=== PATIENT | female | born 1990 | race Caucasian/White ===

== ENCOUNTER → 2018-08-16 17:10 | Outpatient (CLI) | payer SELFPAY ==
[2018-08-16 21:20] LABS: Chlamydia Trachomatis by PCR Negative (Negative); Neisserai gonorrhoeae by PCR Negative (Negative); Probe Check PASS; Sample Adequacy Control PASS; Specimen Processing Control PASS
[2018-08-23 08:37] LABS: HPV Reflexed? NOT INDICATED
== END ==
PROVIDERS: Referring Provider Obstetrics & Gynecology; Visit Provider Obstetrics & Gynecology
DX: Z34.81 Encounter for supervision of other normal pregnancy, first trimester (principal); Z12.4 Encounter for screening for malignant neoplasm of cervix; Z11.3 Encounter for screening for infections with a predominantly sexual mode of transmission
CPT/HCPCS: 87491; 87591; 88175; G0145

== ENCOUNTER → 2018-09-11 11:42 | Outpatient (CLI) | payer SELFPAY ==
[2018-09-11 13:38] LABS: Color, Urine Yellow (Yellow); Glucose, Dipstick Normal (Normal); Ketone-Dipstick Negative (Negative); Leukocyte Esterase-Dipstick Negative /ul (Negative); Nitrite-Dipstick Negative (Negative); Occult Blood-Urine Negative /ul (Negative); Protein-Dipstick Negative (Negative); Urine Bilirubin Dipstick Negative (Negative); Urine Clarity Sl. Cloudy (Clear); Urine Urobilinogen Normal (Normal)
[2018-09-11 16:02] LABS: Absolute Lymphocyte Count 1.16 X10^3/ul (0.83-4.51); Basophil# 0.01 X10^3/uL; Basophil% 0.1 % (0-1); Eosinophil# 0.06 X10^3/uL; Eosinophils% 0.9 % (0-5); Hemoglobin 12.4 g/dl (12.0-15.0); Lymphocyte # 1.16 X10^3/ul (4.0); Lymphocyte % 17.1 % (19-41); Mean Corp Hgb Conc 32.6 g/gl (32-36); Mean Corpuscular Hgb 28.6 pg (27.0-32.0); Mean Corpuscular Volume 87.8 fL (81-99); Mean Platelet Vol. 10.4 fl (6.2-12.0); Monocyte# 0.53 X10^3/uL; Monocyte% 7.8 % (0-10); Neutrophil # 5.03 X10^3/uL (2.7-7.7); Platelet Count 175 K/mm3 (150-450); RBC Distribution Width CV 14.1 % (11.6-14.6); Red Blood Count 4.33 M/mm3 (4.2-5.4); White Blood Count 6.8 K/mm3 (4.4-11.0)
[2018-09-11 16:15] LABS: Thyroid Stim Hormone (TSH) 0.91 uIU/mL (0.358-3.74)
[2018-09-11 16:32] LABS: POSITIVE COUNT NO; POSITIVE DIFFERENTIAL NO; POSITIVE MORPHOLOGY NO
[2018-09-11 16:55] LABS: HIV - WCH Non-Reactive (Nonreactive); Rubella IgG 31.7 IU/mL
[2018-09-13 02:05] LABS: Prenatal RPR NONREACTIVE (NONREACTIVE)
[2018-09-13 11:24] LABS: HEPATITIS B SURFACE AG Negative (Negative)
[2018-09-13 11:25] LABS: Hep C Antibodies <0.1 s/co ratio (0.0-0.9)
== END ==
PROVIDERS: Visit Provider Obstetrics & Gynecology
DX: Z34.82 Encounter for supervision of other normal pregnancy, second trimester (principal)
CPT/HCPCS: 36415; 81002; 82306; 84443; 85025; 86703; 86762; 86803; 86870; 86905; 87340

== ENCOUNTER → 2018-10-08 11:09 | Outpatient (CLI) | payer SELFPAY | PROVIDERS: Visit Provider Obstetrics & Gynecology | DX: O36.0120 Maternal care for anti-D [Rh] antibodies, second trimester, not applicable or unspecified (principal); Z3A.00 Weeks of gestation of pregnancy not specified | CPT/HCPCS: 36415 ==

== ENCOUNTER → 2018-11-21 16:17 | Outpatient (CLI) | payer SELFPAY ==
[2018-11-21 17:17] LABS: Hematocrit 33.1 % (37-47); Hemoglobin 11.2 g/dl (12.0-15.0); Mean Corp Hgb Conc 33.8 g/gl (32-36); Mean Corpuscular Hgb 30.3 pg (27.0-32.0); Mean Corpuscular Volume 89.5 fL (81-99); Platelet Count 200 K/mm3 (150-450); RBC Distribution Width CV 13.9 % (11.6-14.6); RBC Distribution Width SD 44.2 fl (35.1-43.9); White Blood Count 8.6 K/mm3 (4.4-11.0)
[2018-11-21 17:18] LABS: Glucose Challenge Gest 1H 50g 89 mg/dL (70-140)
[2018-11-21 17:19] LABS: Scan Indicated on CBC? Y/N NO
== END ==
PROVIDERS: Visit Provider Obstetrics & Gynecology
DX: Z34.82 Encounter for supervision of other normal pregnancy, second trimester (principal)
CPT/HCPCS: 36415; 82950; 85027

== ENCOUNTER → 2018-12-20 13:49 | Outpatient (CLI) | payer SELFPAY | PROVIDERS: Visit Provider Obstetrics & Gynecology | DX: Z34.83 Encounter for supervision of other normal pregnancy, third trimester (principal) | CPT/HCPCS: 36415 ==

== ENCOUNTER → 2019-01-30 10:49 | Outpatient (CLI) | payer SELFPAY | PROVIDERS: Visit Provider Obstetrics & Gynecology | DX: Z36.85 Encounter for antenatal screening for Streptococcus B (principal) | CPT/HCPCS: 87081 ==

== ENCOUNTER 2019-02-27 07:00 | Inpatient (IN) | payer SELFPAY ==
[2019-02-27 07:21] VITALS: BMI 32.8
[2019-02-27] MEDS: Lactated Ringers 1,000 ML 50 ML IV (07:25)
[2019-02-27] MEDS: Oxytocin 30 units/NS 500 ml 30 UNITS/500 ML IV.SOLN IV (07:44)
--- NOTE | 2019-02-27 07:48 | PCM.HPOB.BLA ---
History and Physical Date of Admission: 02/27/19 OB HISTORY AND PHYSICAL EXAMINATION History of this : 28 yo female Ab0 with EDC 02/26/2019 by Ultrasound, presents to Labor and Delivery at 40 1/7 for elective induction of labor. Favorable cervix. 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 (blood) Offered repeat pap NOW vs at PP check -- elected to defer to pp check. Pertinent Past Medical History: None Allergies: No Known Drug Allergies Medications: During - folic acid 1 mg tablet; omega 2-csa-ect-fish oil 1,000 mg (120 mg-180 mg) capsule; 28 mg iron-800 mcg tablet Review of Systems: Non-contributory PHYSICAL EXAMINATION General Appearance: 28 yo female in no acute distress Vital Signs: AF, VSS Heart: RRR without rubs or gallops Lungs: regular respiratory rate Breasts: deferred Abdomen: gravid Pelvis: adequate / proven Cervix: 4/75/-2 midposition, midconsistency. AROM clear Presentation: cephalic Size: AGA Movement: present Heart: 130-140s avg variability. Accels to 160s No UCs noted. Impression /Plan: Intrauterine . 40 1/7 wk induction of labor, elective. Plan AROM Pitocin prn. History and Physical generated at time of admission. See progress notes for changes. Pb Ratliff MD 02/27/19 [id number]
[2019-02-27 07:58] LABS: Absolute Lymphocyte Count 1.51 X10^3/uL (0.83-4.51); Absolute Neutrophil Count 5.2 X10^3/uL (2.0-7.7); Basophil# 0.01 X10^3/uL; Basophil% 0.1 % (0-1); Eosinophil# 0.09 X10^3/uL; Eosinophils% 1.2 % (0-5); Hematocrit 32.9 % (37-47); Hemoglobin 10.4 g/dL (12.0-15.0); Lymphocyte # 1.51 X10^3/ul (4.0); Lymphocyte % 19.8 % (19-41); Mean Corp Hgb Conc 31.6 g/dL (32-36); Mean Corpuscular Hgb 27.7 pg (27.0-32.0); Mean Corpuscular Volume 87.7 fL (81-99); Mean Platelet Vol. 10.8 fl (6.2-12.0); Monocyte# 0.74 X10^3/uL; Monocyte% 9.7 % (0-10); NRBC Flagged by Analyzer 0 % (0-5); Neutrophil # 5.23 X10^3/uL (2.7-7.7); Neutrophil % 68.7 % (47-70); Platelet Count 200 K/mm3 (150-450); Red Blood Count 3.75 M/mm3 (4.2-5.4); White Blood Count 7.6 K/mm3 (4.4-11.0)
--- NOTE | 2019-02-27 14:53 | PCM.PN.BLA ---
Progress Note LABOR PROGRESS NOTE 40 1/7 wk EGA Feeling some UCs Rates pain at 6/10 On hands, knees now AVSS Pitocin induction after AROM this am. 14 mIU/min EFM: 130-140s avg variability. 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 ? OP A/P: 40 1/7 wk female elective induction. Continue pitocin Anticipate Position changes to assist rotation, descent
[2019-02-27] MEDS: Nalbuphine 10 MG/ML Ampul IV (15:16)
[2019-02-27] MEDS: Oxytocin 30 units/NS 500 ml 30 UNITS/500 ML IV.SOLN 334 UNITS IV (15:40)
--- NOTE | 2019-02-27 16:25 | DCINST_ITS ---
Discharge Diet: No Restrictions Discharge Activity: May Shower, May Take a Tub Bath May resume sexual activity in: 4-6 weeks Additional Activity Instructions:: Nothing in the vagina for 4-6 weeks. You may return to work/school in 6 weeks. Additional Instructions: If you experience any of the following, contact your healthcare provider. * Bleeding that soaks a pad every hour for 2 hours * Fever 100.4 or higher * Unrelieved abdominal pain * Problems urinating (including inability to urinate or burning while urinating). * Visual changes * Severe headache * Flu-like symptoms * Pain or redness in one of both of your breasts * Pain, warmth, tenderness or swelling in your legs, especially the calf area * Frequent nausea and vomiting * Symptoms of depression or anxiety If you experience any of the following, call 911 or go to the nearest Emergency Room. * Chest pain * Problems breathing * Seizure activity * Partial or complete paralysis of a body part, slurred speech, weakness or drooping of the face, or a sudden inability to walk or hold your balance Allergies/Adverse Reactions: Allergies No Known Allergies Allergy (Verified 02/27/19 07:23) Please Follow Up With: Angy Ratliff MD - [phone] When: Call to make an appointment with your doctor in 6 weeks. Primary Care Physician: Care Physician,No Primary [Primary Care Provider] - Test Results: Test results from this visit will be discussed in further detail at your follow- up appointment, if applicable. Proposed Discharge Date: 03/01/19
--- NOTE | 2019-02-27 16:25 | PCM.DCVAG ---
Discharge Diet: No Restrictions Discharge Activity: May Shower, May Take a Tub Bath May resume sexual activity in: 4-6 weeks Additional Activity Instructions:: Nothing in the vagina for 4-6 weeks. You may return to work/school in 6 weeks. Additional Instructions: If you experience any of the following, contact your healthcare provider. Bleeding that soaks a pad every hour for 2 hours Fever 100.4 or higher Unrelieved abdominal pain Problems urinating (including inability to urinate or burning while urinating). Visual changes Severe headache Flu-like symptoms Pain or redness in one of both of your breasts Pain, warmth, tenderness or swelling in your legs, especially the calf area Frequent nausea and vomiting Symptoms of depression or anxiety If you experience any of the following, call 911 or go to the nearest Emergency Room. Chest pain Problems breathing Seizure activity Partial or complete paralysis of a body part, slurred speech, weakness or drooping of the face, or a sudden inability to walk or hold your balance Allergies/Adverse Reactions: Allergies No Known Allergies Allergy (Verified 02/27/19 07:23) Please Follow Up With: Angy Ratliff MD - [phone] When: Call to make an appointment with your doctor in 6 weeks. Primary Care Physician: Care Physician,No Primary [Primary Care Provider] - Test Results: Test results from this visit will be discussed in further detail at your follow-up appointment, if applicable. Proposed Discharge Date: 03/01/19
--- NOTE | 2019-02-27 16:27 | PCM.OPRPT ---
Vaginal Delivery Maternal Presentation: Active Labor 40 1/7 wk induction, elective Method of Induction: Pitocin, Amniotomy Amniotic Membrane Rupture Type: Artificial Amniotic Fluid Description: Clear Final NEGRITA: 02/26/19 Gestational age: 40 Weeks and 1 Days Date of Procedure: 02/27/19 Pre-Operative Diagnosis: 40 1/7 wk EGA induction Post-Operative Diagnosis: same Surgery/ Procedure Performed: Spontaneous Vaginal Delivery Type of Anesthesia: None Description of Procedure: of a verma viable male over intact perineum to lacerations. Head delivered SIMONA. No nuchal cord, shoulders delivered easily. to maternal abdomen Delayed cord clamping and then cord clamped times two and cut. Vigorous crying infant. PP exam; 2nd deg vaginal and perineal laceration repaired under 1% lidocaine local to hemostatic, intact with 3-0 Vicryl No other lacerations noted Placenta delivered by spont expulsion 3V cord normal appearing intact with trailing membranes EBL 200 [place] counts correct times two Pt and infant tolerated delivery well. to recovery in stable condition. Presentation: Vertex, SIMONA Placental Delivery Description: Spontaneous, Expressed Placenta Disposition: [facility] Cord Vessel Description: 3 Vessels Cord Entanglement: None Estimated Blood Loss: 200 Infant A gender: Male (1 minute): 8 (5 minute): 9 Episiotomy Description: None Laceration: Midline, Perineal Extension/lac, Vaginal Extension/lac, 2nd degree Medications given after delivery: IV Pitocin Complications: None
[2019-02-27] MEDS: Ibuprofen 600 MG Tablet PO (18:45)
[2019-02-27 20:00] VITALS: BP 114/69; PULSE 89; RESP 16; TEMP 36.7; O2SAT 95
[2019-02-27 23:22] VITALS: BP 108/59; PULSE 88; RESP 16; TEMP 36.8; O2SAT 100
[2019-02-28 03:30] VITALS: BP 105/61; PULSE 82; RESP 16; TEMP 37.3; O2SAT 100
[2019-02-28 07:39] VITALS: BP 119/72; PULSE 82; RESP 16; TEMP 36.2
--- NOTE | 2019-02-28 09:24 | PCM.PN.OB ---
Subjective: Patient without complaints. Breast-feeding going well. Considering going home later today. - Physical Exam Vital Signs Temp Pulse Resp BP Pulse Ox 97.2 F L 82 16 119/72 100 02/28/19 07:39 02/28/19 07:39 02/28/19 07:39 02/28/19 07:39 02/28/19 03:30 Oxygen Delivery Method Room Air Weight: 216 lb 2 oz Body Mass Index (BMI) 32.8 Intake and Output for Last 24 Hours 02/26/19 02/27/19 02/28/19 23:59 23:59 23:59 Intake Total 991.54 / 991.54 Output Total 1800 / 1800 Balance -808.46 / -808.46 Laboratory Tests Past 24 Hrs 02/27/19 02/27/19 07:25 07:25 Blood Type A POSITIVE Antibody Screen POSITIVE H Antibody Identification ANTI-M Crossmatch See Detail Medical Necessity - Tobacco Use Smoking Status: Never smoker Assessment/Plan Doing well day #1 status post routine spontaneous vaginal delivery. Home-going instructions given.
[2019-02-28 12:45] VITALS: BP 119/77; PULSE 85; RESP 16; TEMP 37.1
[2019-02-28] MEDS: Ibuprofen 600 MG Tablet PO (20:13)
[2019-02-28 20:15] VITALS: BP 104/77; PULSE 92; RESP 16; TEMP 36.6; O2SAT 97
[2019-03-01 03:09] VITALS: BP 108/72; PULSE 70; RESP 16; TEMP 36.6; O2SAT 97
[2019-03-01 09:30] VITALS: BP 106/73; PULSE 91; RESP 18; TEMP 36.7; O2SAT 98
--- NOTE | 2019-03-01 10:13 | PCM.PN.OB ---
Subjective: Patient without complaints. Breast-feeding going well. Ready to go home today. - Physical Exam Vital Signs Temp Pulse Resp BP Pulse Ox 97.8 F 70 16 108/72 97 03/01/19 03:09 03/01/19 03:03/01/19 03:09 03/01/19 03:03/01/19 03:09 Oxygen Delivery Method Room Air Weight: 216 lb 2 oz Body Mass Index (BMI) 32.8 Intake and Output for Last 24 Hours 02/27/19 02/28/19 03/01/19 23:59 23:59 23:59 Intake Total 991.54 / 991.54 Output Total 1800 / 1800 Balance -808.46 / -808.46 Medical Necessity - Tobacco Use Smoking Status: Never smoker Assessment/Plan Doing well day #2 status post routine spontaneous vaginal delivery. Will discharge to home with routine instructions.
== END 2019-03-01 12:10 | disposition home or self-care (01) | DRG 807 ==
PROVIDERS: Admitting Provider Obstetrics & Gynecology; Referring Provider Obstetrics & Gynecology; Visit Provider Obstetrics & Gynecology
DX: O70.1 Second degree perineal laceration during delivery (principal); Z37.0 Single live birth; Z3A.40 40 weeks gestation of pregnancy
CPT/HCPCS: 59025; 59050; 85025; 86850; 86870; 86900; 86901; 86902; 86920; 86922; 99218; J7120; G0378

== ENCOUNTER → 2019-04-10 13:55 | Outpatient (CLI) | payer SELFPAY | PROVIDERS: Visit Provider Obstetrics & Gynecology | DX: Z12.4 Encounter for screening for malignant neoplasm of cervix (principal) ==